=== PATIENT | female | born 1945 | race Caucasian/White ===

== ENCOUNTER 2016-07-25 06:17 | Inpatient (IN) | payer MEDICARE ==
--- NOTE | 2016-07-19 21:22 | HP ---
HISTORY AND PHYSICAL: DATE OF ADMISSION/SURGERY: 07/25/16 PROCEDURE: Right total knee arthroplasty. CHIEF COMPLAINT: Right knee pain. HISTORY OF PRESENT ILLNESS: Ms. Skinner is a 71-year-old female with complaints of right knee pain s econdary to advanced osteoarthritis. She has failed conservative management and has elected to proc eed with a right total knee arthroplasty which is scheduled for 07/25/[address] Glynn. PAST MEDICAL HISTORY: 1. Anxiety. 2. Hypertension. 3. Diabetes. 4. Hyperlipidemia. PAST SURGICAL HISTORY: 1. Left knee arthroplasty. 2. Right thumb nerve surgery. 3. Bilateral knee arthroscopies. 4. Cyst removal from her ovary. 5. . CURRENT MEDICATIONS: 1. Propranolol 20 mg once a day. 2. Trulicity 0.75 mg/0.5 mL once weekly injection. 3. Lovastatin 20 mg at night. 4. Lisinopril 20 mg every day. 5. Repaglinide 0.5 mg once a day. 6. Aspirin 81 mg once a day. 7. Vitamin D 1000 units once a day. 8. Metformin 500 mg 2 tablets twice daily. 9. Daily multivitamin. 10. Bupropion 150 mg once a day. ALLERGIES: No known drug allergies. FAMILY HISTORY: Diabetes, heart disease, lymphoma, lung cancer. SOCIAL HISTORY: She is a 71-year-old female. She lives alone. She does not smoke or use drugs. U ses occasional social alcohol. REVIEW OF SYSTEMS: A complete review of systems was reviewed with the patient. Positive for diabete s. Negative for history of DVT, PE, anesthesia problems, hepatitis C, or HIV. PHYSICAL EXAMINATION GENERAL: She is well developed, well nourished in no acute distress. VITAL SIGNS: She stands 5 feet 6 inches tall, weighs 190 pounds. Her blood pressure is 132/77. He r heart rate is 79. HEENT: Normocephalic, atraumatic. NECK: Supple. No palpable lymph nodes. Trachea is midline. PULMONARY: The lungs are clear to auscultation bilaterally. CARDIO: Regular rate and rhythm. Strong S1, S2. ABDOMEN: Soft, nontender, nondistended. NEUROLOGICAL: She is alert and oriented x3. Cranial nerves II through XII are intact. MUSCULOSKELETAL: Right lower extremity: The skin is intact. No open wounds or abrasions. She has tenderness over the medial and lateral joint line. Her lower extremity muscle group strengths are intact at 5/5. She has 2+ dorsalis pedis pulses and intact sensation. ASSESSMENT AND PLAN: Ms. Skinner is a 71-year-old female with complaints of right knee pain seconda ry to advanced osteoarthritis. She has failed conservative management and has elected to proceed wi th a right total knee arthroplasty which is scheduled for 07/25/[address] Glynn discus sed the risks and benefits of the surgery at today's visit. All of her questions were answered. Co umadin, Percocet, and Colace were sent to her pharmacy for postoperative pain control and DVT prophy laxis. She will see Dr. Glynn back 2 weeks after the surgery. BRIGITTE SALCEDO [id number]/[facility] #: [id number]
[~2016-07-25 06:17] MED LIST: Buffered Lidocaine 1% SYR 3ML* 3 ML/SYR SYRINGE INTRADERM ONE; Buffered Lidocaine 1% SYRIN* 5 ML/SYR SYRINGE ONE; Famotidine IV* 10 MG/ML 2 ML (20 mg) IV ONE; Famotidine IV* 10 MG/ML 2 ML (20 mg) ONE; ceFAZolin 2 GM PREMIX(*) 2 GM/50 ML BAG IVPB ONE
[2016-07-25] MEDS ORDERED: Midazolam* 1 MG/ML 5 ML VIAL (5 MG) ONE (07:13)
[2016-07-25] MEDS ORDERED: fentaNYL* 50 MCG/ML 2 ML VIAL (100 MCG VIAL) ONE (07:13)
[2016-07-25] MEDS ORDERED: ROPIVACAINE 5 MG/ML 30 ML BTL (0.5%) ONE (07:15)
[2016-07-25] MEDS ORDERED: Lidocaine 1% INJ* 10 MG/ML 30 ML SDV ONE (07:35)
[2016-07-25] MEDS ORDERED: Morphine PF AMP (0.5MG/ML)* 5 MG/10 ML AMP ONE (07:45)
[2016-07-25] MEDS ORDERED: KETAMINE HCL* 50 MG/ML 10 ML VIAL ONE (07:56)
[2016-07-25] MEDS ORDERED: DiMENhydriNATE IV* 50 MG/ML VIAL ONE (08:10)
[2016-07-25] MEDS ORDERED: Lidocaine 2% PF * 5 ML VIAL ONE (08:10)
[2016-07-25] MEDS ORDERED: Ondansetron INJ* 2 MG/ML VIAL ONE (08:10)
[2016-07-25] MEDS ORDERED: Ketorolac INJ* 30 MG/ML 1 ML VIAL ONE (08:10)
[2016-07-25] MEDS ORDERED: Propofol* 10 MG/ML 20 ML BTL IV PUSH ONE ×2 (08:10→09:31)
[2016-07-25] MEDS ORDERED: Dexamethasone IV* 4 MG/ML 1 ML (4 MG) ONE (08:10)
[2016-07-25] MEDS ORDERED: Ondansetron INJ* 2 MG/ML VIAL IV PRN (08:52)
[2016-07-25] MEDS ORDERED: oxyCODONE TAB* 5 MG TAB PO PRN ×2 (08:52→21:50)
[2016-07-25] MEDS ORDERED: Nalbuphine* 20 MG/ML 1 ML VIAL IV PRN (08:52)
[2016-07-25] MEDS ORDERED: Naloxone* 0.4 MG/ML 1 ML VIAL IV PRN (08:52)
[2016-07-25] MEDS ORDERED: HYDROmorphone* 1 MG/ML 1 ML SYR IV PRN (08:56)
[2016-07-25] MEDS ORDERED: DiMENhydriNATE IV* 50 MG/ML VIAL IV PUSH PRN (08:56)
[2016-07-25] MEDS ORDERED: oxyCODONE/Acetamin 5/325 MG* TAB PO PRN (08:56)
[2016-07-25] MEDS ORDERED: Polyethylene Glycol 3350* 17 GM PACKET PO PRN (10:37)
[2016-07-25] MEDS ORDERED: Bisacodyl SUPP* 10 MG SUPP PR PRN (10:37)
[2016-07-25] MEDS ORDERED: Magnesium Hydroxide LIQ* 30 ML UDC PO PRN (10:37)
[2016-07-25] MEDS ORDERED: PROPRANOLOL HCL PO PRN (10:40)
[2016-07-25] MEDS ORDERED: Dulaglutide (NF) 1.5 MG/0.5 ML SYRINGE SUBCUT SCH (11:00)
--- NOTE | 2016-07-25 11:39 | RAD ---
INDICATION: Status post total right knee replacement surgery. COMPARISON: Comparison is made with a prior study from March 13, 2016. TECHNIQUE: 2 views of the right knee were obtained. FINDINGS: The patient is status post total right knee replacement surgery. The bones and prostheses are in normal alignment. There is air within the surrounding soft tissues and a drain present anterior to the distal femur consistent with the patient's recent surgery. IMPRESSION: STATUS POST TOTAL RIGHT KNEE REPLACEMENT SURGERY.
[2016-07-25] MEDS ORDERED: Dextrose 50% Syringe 50 ML* 25 GM/50 ML SYRINGE IV PUSH PRN (12:06)
[2016-07-25] MEDS ORDERED: Propranolol TAB* 20 MG PO PRN (12:08)
[2016-07-25] MEDS: Acetaminophen TAB* 325 MG PO SCH ×3 (14:35→21:19)
[2016-07-25] MEDS: ceFAZolin 1 GM in Dextrose (*) 1 GM/50 ML BAG IVPB SCH ×2 (16:30→23:56)
[2016-07-25] MEDS ORDERED: Repaglinide TAB* 0.5 MG PO SCH (17:00)
[2016-07-25] MEDS ORDERED: Warfarin TAB(*) 6 MG PO ONE (17:00)
[2016-07-25] MEDS: Insulin LISPRO* 1 UNITS UNIT SUBCUT SCH (17:22)
[2016-07-25] MEDS ORDERED: Simvastatin TAB(NF) 20 MG TAB PO SCH (18:00)
[2016-07-25] MEDS ORDERED: metFORMIN* 500 MG TAB PO SCH (21:00)
[2016-07-25] MEDS: LOVASTATIN 10 MG PO SCH (21:19)
[2016-07-25] MEDS: Docusate CAP* 100 MG PO SCH (21:19)
--- NOTE | 2016-07-25 21:27 | CONS ---
ONSULTATION REPORT: DATE OF CONSULT: 07/25/16 AGE: 71. PRIMARY CARE PROVIDER: Dimitri Acuna MD. ATTENDING PHYSICIAN: Juan Francisco Tamez MD (dictated by Isa Ramirez NP). PHYSICIAN REQUESTING CONSULTATION: Sivan Glynn MD. REASON FOR CONSULTATION: Co-medical management in a patient with a history of hypertension, diabetes mellitus type 2, and hyperlipidemia. HISTORY OF PRESENT ILLNESS: Ms. Skinner is a 71-year-old female with past medical history significant for anxiety, hypertension, type 2 diabetes mellitus , hyperlipidemia, chronic kidney disease stage 4, obesity, anemia of chronic disease, and osteoarthritis who presented to the hospital for an elective right total knee arthroplasty with Dr. Glynn today. Postoperatively, the patient is doing well. She reports minimal nausea in the recovery room that has resolved. The patient states that leading up to surgery she has been in good state of health with the exception of right knee discomfort. She denies any recent fevers, chills, shortness of breath, chest pain, or urinary symptoms. Hospitalists were asked to assist with medical management of this patient during the postoperative period. PAST MEDICAL HISTORY: 1. Anxiety. 2. Hypertension. 3. Diabetes mellitus type 2. 4. Hyperlipidemia. 5. Chronic kidney disease stage 4. 6. Obesity. 7. Anemia of chronic disease. 8. Osteoarthritis. PAST SURGICAL HISTORY: 1. Status post left total knee arthroplasty in 2014. 2. Status post right thumb nerve surgery. 3. Status post bilateral knee arthroscopies. 4. Status post ovarian cyst resection. 5. Status post section in 1980. 6. Status post bilateral cataract extractions. HOME MEDICATIONS: Include: 1. Propranolol 20 mg oral daily as needed for anxiety. 2. Trulicity 0.75 mg/0.5 mL subcutaneous weekly on . 3. Rosuvastatin 20 mg oral daily. 4. Lisinopril 10 mg oral daily. 5. Repaglinide 0.5 mg oral daily. 6. Aspirin 81 mg oral daily. 7. Vitamin D3, 1000 units oral daily. 8. Metformin 1000 mg oral twice daily. 9. Multivitamin 1 tablet oral daily. 10. Bupropion XL 150 mg oral daily. 11. Diclofenac sodium 75 mg oral daily every morning as needed. ALLERGIES: No known drug allergies. FAMILY HISTORY: The patient's sister had a history of diabetes mellitus. The patient's father had a myocardial infarction in his 60s and her maternal grandmother had a history of heart disease. The patient's mother had a history of lymphoma. The patient's maternal aunt had a history of lung cancer and her maternal grandfather had an unknown cancer in his 90s. SOCIAL HISTORY: The patient denies tobacco or recreational drug use. She occasionally drinks alcoholic beverages. She lives alone. Her son, Jaciel Skinner, will be her surrogate decision maker in the event that she is unable to make decisions for herself. REVIEW OF SYSTEMS: I performed a 14-point review of systems. All the pertinent positives and negatives are mentioned in the history of present illness. The remaining review of systems is negative. PHYSICAL EXAMINATION: Vital Signs: Temperature 98.2, heart rate 70, respiratory rate 16, O2 saturation 99% on 2 L via nasal cannula, blood pressure 121/62. Appearance: The patient is alert, appears to be in no acute distress. HEENT: Normocephalic, atraumatic. Pupils are equal and reactive to light. Extraocular movements are intact. Cardiovascular: Regular rate and rhythm. S1 , S2 crisp. There are no murmurs, rubs, or gallops heard. Extremities: There is no lower extremity edema. DP and PT pulses are 2+ and symmetric. Respiratory: There is no accessory muscle use and the lungs are clear to auscultation bilaterally. Abdomen: Soft, nontender, nondistended. Bowel sounds present x4. Musculoskeletal: There is no clubbing or cyanosis noted. The patient exhibits good strength in all extremities. Skin: There is dressing on the right knee that is clean, dry and intact. Neurological: Cranial nerves II through XII are grossly intact. The patient moves all extremities. Psychological: The patient is calm and cooperative. DIAGNOSTIC STUDIES/LAB DATA: Preoperative labs from 06/28/16: Sodium 138, potassium 4.7, chloride 104, CO2 28, BUN 32, creatinine 1.73, glucose 111. White blood cell count 4.7, hemoglobin 11.1, hematocrit 34, platelet count 279. Urinalysis from 07/19/16 shows no growth. Chest x-ray from 07/19/16 shows no cardiopulmonary disease. Preoperative EKG shows a normal sinus rhythm with a rate of 78 and no signs of acute ischemia. IMPRESSION: Ms. Skinner is a 71-year-old female with past medical history significant for anxiety, hypertension, diabetes mellitus type 2, hyperlipidemia , chronic kidney disease stage 4, obesity, anemia of chronic disease, and osteoarthritis who presents to the hospital for an elective right total knee arthroplasty with Dr. Glynn. Hospitalists were asked to assist with the co- management of this patient during her hospitalization. ASSESSMENT/PLAN: 1. Status post right total knee arthroplasty: Postop day. Management will be per Orthopedic Surgery. The patient will be started on a pain regimen and bowel regimen. She will have physical therapy and occupational therapy. We will trend the patient's hemoglobin and hematocrit. She will be on Lovenox bridged to warfarin per Orthopedic Surgery. Her urinary catheter will be removed on postop day 1. 2. Type 2 diabetes mellitus: While the patient is in the hospital, we are going to hold her Prandin and metformin. She takes Trulicity once weekly and took that this morning prior to her surgery. We will do fingersticks a.c. and h.s. with a lispro sliding scale with meals. The patient's last hemoglobin A1c from January 2015 was 7.0. 3. Hypertension: The patient's blood pressures have been normotensive during her time in the PACU. For now, we will hold her lisinopril and resume accordingly possibly in the morning. 4. Hyperlipidemia: The patient will be continued on her home statin or the auto substitute available at the hospital. 5. Anxiety: The patient will be continued on her as needed propranolol and bupropion. 6. Chronic kidney disease stage 4: The patient's preoperative creatinine was 1.73. This appears to be slightly higher than her previous baseline, but they are from 2014, at which time she was from 1.29 to 1.54. I recommend avoiding nephrotoxic agents and will recheck her creatinine in the morning and follow this. 7. Anemia of chronic disease: The patient's preoperative hemoglobin was 11.1 and hematocrit 34, so this appears to be her baseline. We will trend her hemoglobin and hematocrit while she is here. 8. Fluids, electrolytes, and nutrition: The patient will be on a consistent carbohydrate diet. 9. DVT prophylaxis: The patient will be on Lovenox bridged to warfarin per Orthopedic Surgery. 10. Code status: Full code. 11. Disposition: Inpatient with disposition per Orthopedic Surgery. TIME SPENT: The time for this consultation was 60 minutes, and 30 minutes were spent [id number] with the patient discussing medications, past medical history , and the events leading up to her arrival today and performing a physical examination. The case has been reviewed with the attending, Dr. Tamez, who agrees with the plan of care. Reviewed by DEON DUNHAM 07/27/16 1656 CC: Dimitri Acuna MD; Dr. Glynn* [id number]/[facility] #: [id number] [facility]ENTERS[facility]
[2016-07-25] MEDS ORDERED: Oxycodone IR 10 MG(NF) TAB PO PRN (21:47)
[2016-07-25] MEDS ORDERED: Insulin LISPRO* 1 UNITS UNIT SUBCUT ONE (22:16)
[2016-07-26] MEDS ORDERED: Ondansetron TAB* 4 MG PO PRN
[2016-07-26] MEDS ORDERED: diPHENhydraMINE IV* 50 MG/ML 1 ml VIAL (BENADRYL) IV PRN
[2016-07-26] MEDS ORDERED: oxyCODONE/Acetamin 5/325 MG* TAB PO PRN
[2016-07-26] MEDS ORDERED: Acetaminophen TAB* 325 MG PO PRN
[2016-07-26] MEDS: oxyCODONE TAB* 5 MG TAB PO PRN ×3 (02:41→17:10)
[2016-07-26] MEDS: oxyCODONE/Acetamin 5/325 MG* TAB PO PRN ×4 (06:03→20:04)
--- NOTE | 2016-07-26 06:13 | OP ---
OPERATIVE REPORT: DATE OF OPERATION: 07/25/16 DATE OF : 47 SURGEON: Sivan Glynn MD CLIENT RESOURCE SPECIALIST: BRIGITTE Nj ANESTHESIOLOGIST: Dr. Vincent ANESTHESIA: Spinal with adductor nerve block. PRE-OP DIAGNOSIS: Severe endstage degenerative osteoarthritis of the right knee with valgus deformity. POST-OP DIAGNOSIS: Severe endstage degenerative osteoarthritis of the right knee with valgus deformity. OPERATIVE PROCEDURE: Right total knee arthroplasty. TOURNIQUET TIME: 61 minutes. COMPLICATIONS: None. SPECIMEN: Bone and cartilage from the right knee joint, sent to Pathology. ESTIMATED BLOOD LOSS: 200 cc. HARDWARE USED: Is [employer] cemented total knee hardware. For the femur , a size 4 right posterior stabilized femoral component. For the tibia, a size 4 tibial baseplate, right. A 35 mm 3-peg all poly patella and a 9 mm size 3-4 constrained articular insert. For the cement, 2 packages of Simplex cement. BRIEF HISTORY/INDICATIONS: Ms. Skinner is a 71-year-old female with years of increasingly severe right knee pain. Radiographs confirmed severe endstage arthritis of the right knee joint with [id number] contact in the lateral compartment and severe arthritis of the patellofemoral compartment as well as valgus deformity. The patient failed conservative treatment with antiinflammatories, pain medication, intraarticular injections, physical therapy , and use of a cane. She elected to undergo right total knee arthroplasty due to continued pain and decreased quality of life. Informed consent was obtained from the patient. She understood the risks of the procedure included, but were not limited to bleeding, infection, damage to nearby structures, continued pain, need for further surgery, intraoperative fracture, nerve palsy, hardware failure or loosening, loss of motion, stiffness , stroke, heart attack, blood clot, and . She wished to proceed. INTRAOPERATIVE FINDINGS: Intraoperatively, the patient was noted have severe endstage arthritis of the right knee joint with complete loss of cartilage in the lateral and patellofemoral compartment. 15-degree valgus deformity preoperatively was corrected to 5 degrees of anatomic valgus by the end of the case. The patient was noted to have severe knee stiffness at the beginning of the case. She had flexion contracture with limited flexion at 90 degrees to, at the end of the case, she had full extension and 125 degrees of flexion. DESCRIPTION OF PROCEDURE: Ms. Skinner was identified in the pre-anesthesia unit. Her right lower extremity was marked as the correct operative site. Informed consent was signed and placed in the chart. The patient was taken to the operating room and placed under spinal anesthesia with an adductor nerve block. A Storm catheter was placed. Tourniquet was placed on the right thigh. Right lower extremity was prepped and draped in the usual sterile fashion. Preop time-out was made to correctly identify the patient's side and site. Appropriate perioperative antibiotics were given within 1 hour of incision. Tourniquet was inflated and total tourniquet time for this procedure was 61 minutes. A 14-cm midline incision was made with a 10 blade and carried down to the extensor mechanism. A new 10 blade was used to make a standard medial parapatellar arthrotomy. The patella was subluxed laterally. Electrocautery was used to subperiosteally elevate soft tissue off the superomedial tibia to the mid sagittal plane. The knee was flexed up. The anterior horn of the lateral meniscus and ACL were sharply released. A drill was used to enter the distal femur. Intramedullary distal femoral cutting block was placed. This was a 3-degree right block. Oscillating saw was used to make the distal femoral cut. A lateral femoral condylar hypoplasia was noted and accounted for. Next, the external rotation guide was pinned on the distal femur. The distal femur was sized to a size 4. Size 4 multi-cutting jig was pinned on the distal femur. Oscillating saw was used to make the appropriate 4 chamfer cuts. Any bony fragments were carefully removed. PCL was completely released. The tibia was subluxed anteriorly and the extramedullary tibial cutting guide was placed on the proximal tibia. Oscillating saw was used to make the proximal tibial cut perpendicular to the mechanical axis of the tibia. The bone was carefully removed. The knee was brought out into full extension. There was some MCL laxity, although the MCL was intact. A 15-blade was used to perform a pie-crusting technique along the lateral ligaments. Medial and lateral ligamentous balancing were significantly improved. Flexion and extension gaps were equal. The knee was flexed up. Lamina order entry technician was placed both medially and laterally. Any remaining meniscus was carefully removed using electrocautery. Posterior osteophytes were removed using a curved osteotome and curette. Tibial tray and drop linda were placed. Once again confirmed satisfactory position of the proximal tibial cut. The cut was satisfactory. A size 4 right femoral trial was impacted onto the distal femur. The box for the posterior stabilized implant was prepared using a reamer and box cut osteotome. Size 4 tibial tray trial and 9-mm insert trial were placed and the knee was taken through a range of motion. There was 0 to 125 degrees of flexion with good patellofemoral tracking. The patella was everted and 9 mm of patellar bone and cartilage was removed with a saw. The patella was sized to a 35 and the peg holes were drilled. Trial patella showed good tracking. All trials were removed. The tibia was subluxed anteriorly and sized to a size 4. The proximal tibia was prepared with a size 4 keel punch. The bone was irrigated and dried. The final implants were cemented into place and tourniquet was turned down at 61 minutes. Once the cement was fully cured, the insert trial was removed. Any excess cement was removed. The final insert chosen was a 9 mm constrained size 3-4 poly insert. This was locked into the tibial tray and was noted to be stable. The knee was copiously irrigated. The extensor mechanism was closed using interrupted 1-0 vicryl sutures over a medium hemovac drain. The rest of the incision was closed in a layered fashion and skin was closed with nylon suture. Sterile dressings were applied. The patient was taken to pacu in stable condition. [id number]/[facility] #: [id number] EKTA
[2016-07-26 06:58] LABS: Hematocrit 24 % (35-47); Hemoglobin 7.7 g/dl (12.0-16.0)
[2016-07-26] MEDS: Morphine INJ* 2 MG/ML 1 ML SYRINGE IV PRN ×2 (07:48→10:07)
[2016-07-26] MEDS: ceFAZolin 1 GM in Dextrose (*) 1 GM/50 ML BAG IVPB SCH (07:50)
[2016-07-26] MEDS: BuPROPion XL* 150 MG TAB.XL PO SCH (07:51)
[2016-07-26] MEDS: Docusate CAP* 100 MG PO SCH ×2 (07:51→21:06)
[2016-07-26] MEDS: Cholecalciferol TAB* 1000 UNITS PO SCH (07:51)
[2016-07-26] MEDS: Enoxaparin(*) 30 MG/0.3 ML SYR SUBCUT SCH (07:52)
[2016-07-26 08:20] LABS: BUN/Creatinine Ratio 15.3 (8-20); Calcium 8.1 mg/dL (8.6-10.3); EGFR African American 38.2 (>60); EGFR Non-African American 29.7 (>60); Potassium 4.2 mmol/L (3.5-5.0)
[2016-07-26] MEDS ORDERED: Lisinopril TAB* 10 MG PO SCH (09:00)
[2016-07-26] MEDS: Insulin LISPRO* 1 UNITS UNIT SUBCUT SCH ×3 (09:02→17:12)
[2016-07-26] MEDS: oxyCODONE SR TAB(*) 10 MG TAB.SR PO SCH ×3 (09:48→21:06)
[2016-07-26] MEDS ORDERED: Scopolamine 1.5 mg* PATCH TRANSDERM SCH (11:00)
[2016-07-26] MEDS ORDERED: Scopolomine PATCH Remove* 1 NOTE MISC PATCH OFF SCH (11:00)
--- NOTE | 2016-07-26 11:04 | PN ---
Progress Note - Progress Note SOAP: Subjective: 71 y/o female s/p R TKA 07/[address] Glynn. Patient c/o increased pain overnight and nausea with vomiting x 1 this AM. was able to have dinner last night, however did vomit after breakfast. Objective: General- Well appearing, NAD, sitting in chair c/o nausea, pain MSK- Surgical dressing intact, sensation intact grossly b/l le, moderate swelling noted L LE, pt 2+ b/l, + DF/ PF b/l. Vital Signs Temp 98.7 F 07/26/16 07:46 Pulse 85 07/26/16 07:46 Resp 16 07/26/16 10:07 BP 124/58 07/26/16 07:46 Pulse Ox 97 07/26/16 07:46 Intake & Output 07/25/16 07/26/16 07/26/16 18:59 06:59 18:59 Intake Total 2210 2975 312 Output Total 75 525 200 Balance 2135 2450 112 Intake: IV Fluids 1850 1635 257 LR 1800 1635 257 NS 50ML, Cefazolin 2G 50 IVPB 100 55 ABX - CEFAZOLIN 55 LR 100 Oral 360 1240 Output: Urine 75 Storm 525 Emesis 200 Other: # Bowel Movements 0 Laboratory Results - last 24 hr 07/25/16 07/25/16 07/25/16 10:42 12:58 17:15 Hgb Hct INR (Anticoag Therapy) Sodium Potassium Chloride Carbon Dioxide Anion Gap BUN Creatinine Est GFR ( Amer) Est GFR (Non-Af Amer) BUN/Creatinine Ratio Glucose POC Glucose (mg/dL) 164 H 232 H 216 H Calcium 07/25/16 07/26/16 07/26/16 21:23 06:44 06:44 Hgb 7.7 L Hct 24 L INR (Anticoag Therapy) 1.03 Sodium Potassium Chloride Carbon Dioxide Anion Gap BUN Creatinine Est GFR ( Amer) Est GFR (Non-Af Amer) BUN/Creatinine Ratio Glucose POC Glucose (mg/dL) 241 H Calcium 07/26/16 07/26/16 06:44 07:56 Hgb Hct INR (Anticoag Therapy) Sodium 131 L Potassium 4.2 Chloride 99 L Carbon Dioxide 26 Anion Gap 6 BUN 26 H Creatinine 1.70 H Est GFR ( Amer) 38.2 Est GFR (Non-Af Amer) 29.7 BUN/Creatinine Ratio 15.3 Glucose 155 H POC Glucose (mg/dL) 163 H Calcium 8.1 L Assessment: 71 y/o female s/p R TKA 07/[address] Glynn. Plan: - Pain control- long acting medication added - N/V- Scopolamine patch added - DVT prophylaxis- INR 1.03, 6mg coumadin tonight, continue lovenox - likely DC over weekend to home - Anemia- continue to monitor, VSS currently. Active Medications Generic Name Dose Route Start Last Admin Trade Name Freq PRN Reason Stop Dose Admin Acetaminophen 650 mg 07/26/16 00:00 Tylenol Tab* PO Q4H PRN PAIN OR TEMPERATURE Bisacodyl 10 mg 07/25/16 10:37 Dulcolax Supp* [place] DAILY PRN constipation Bupropion HCl 150 mg 07/26/16 09:00 07/26/16 07:51 Wellbutrin Xl * PO 150 mg QAM MARCELLUS Administration Protocol Cholecalciferol 1,000 units 07/26/16 09:00 07/26/16 07:51 Vitamin D Tab* PO 1,000 units DAILY MARCELLUS Administration Cyclobenzaprine HCl 10 mg 07/26/16 07:47 Flexeril Tab* PO TID PRN SPASMS Dextrose 12.5 gm 07/25/16 12:06 D50w Syringe 50 Ml* IV PUSH .FOR FS < 60 - SS PRN FS < 60 Diphenhydramine HCl 12.5 mg 07/26/16 00:00 Benadryl Iv* IV Q6H PRN PRURITIS Docusate Sodium 100 mg 07/25/16 21:00 07/26/16 07:51 Colace Cap* PO 100 mg BID MARCELLUS Administration Enoxaparin Sodium 30 mg 07/26/16 08:00 07/26/16 07:52 Lovenox(*) SUBCUT 30 mg Q24H MARCELLUS Administration Lactated Ringer's 1,000 mls @ 100 mls/hr 07/25/16 11:00 07/25/16 12:47 Lactated Ringers 1000 Ml Bag* IV 100 mls/hr PER RATE MARCELLUS Administration Insulin Human Lispro 0 - 10 units 07/25/16 16:30 07/26/16 09:02 Humalog* SUBCUT 2 units AC MARCELLUS Administration Protocol Lactulose 30 ml 07/25/16 10:37 Lactulose* PO Q6H PRN constipation Lovastatin 20 mg 07/25/16 21:00 07/25/16 21:19 Mevacor (Nf) PO 20 mg BEDTIME MARCELLUS Administration Magnesium Hydroxide 30 ml 07/25/16 10:37 Milk Of Magnesia Liq* PO Q6H PRN constipation Morphine Sulfate 2 mg 07/26/16 00:00 07/26/16 10:07 Morphine Inj (Syringe)* IV 2 mg Q2H PRN Administration PAIN Ondansetron HCl 4 mg 07/26/16 00:00 07/26/16 09:01 Zofran Tab* PO 4 mg Q6H PRN Administration NAUSEA Oxycodone HCl 10 mg 07/26/16 00:00 07/26/16 02:41 Roxycodone Tab* PO 10 mg Q4H PRN Administration SEVERE PAIN Oxycodone HCl 10 mg 07/26/16 09:00 Oxycontin(*) PO BID MARCELLUS Oxycodone/Acetaminophen 1 tab 07/25/16 08:56 Percocet 5/325 Tab* PO 07/26/16 14:00 ONCE PRN PAIN - MODERATE Oxycodone/Acetaminophen 1 tab 07/26/16 00:00 Percocet 5/325 Tab* PO Q3H PRN PAIN - MODERATE Oxycodone/Acetaminophen 2 tab 07/26/16 00:00 07/26/16 06:03 Percocet 5/325 Tab* PO 2 tab Q3H PRN Administration PAIN - MODERATE Pharmacy Profile Note 0 note 07/25/16 17:00 07/25/16 18:18 Coumadin Daily Reminder* FOLLOW UP Not Given 1700 [facility] Pharmacy Profile Note 1 note 07/26/16 11:00 Scopolomine Patch Remove* PATCH OFF .AFTER 72 HOURS [facility] Polyethylene Glycol/Electrolytes 17 gm 07/25/16 10:37 Miralax* PO DAILY PRN Constipation Propranolol HCl 20 mg 07/25/16 12:08 Inderal Tab* PO DAILY PRN ANXIETY Scopolamine 1 patch 07/26/16 11:00 Transderm-Scop 1.5 Mg Patch* TRANSDERM Q72H [facility] Warfarin Sodium 6 mg 07/26/16 17:00 Coumadin Tab(*) PO 07/26/16 17:01 ONCE@1700 [facility] Protocol
--- NOTE | 2016-07-26 15:34 | PN ---
Subjective Date of Service: 07/26/16 Interval History: Ms. Skinner reports that she is continuing to have pain in her right knee but confirms that nursing is working with her to keep this under good control. She denies other complaint including chest pain, SOB, nausea, or abdominal pain. Objective Active Medications: Acetaminophen (Tylenol Tab*) 650 mg PO Q4H PRN Bisacodyl (Dulcolax Supp*) 10 mg [place] DAILY PRN Bupropion HCl (Wellbutrin Xl *) 150 mg PO QAM [facility] Cholecalciferol (Vitamin D Tab*) 1,000 units PO DAILY [facility] Cyclobenzaprine HCl (Flexeril Tab*) 10 mg PO TID PRN Dextrose (D50w Syringe 50 Ml*) 12.5 gm IV PUSH .FOR FS < 60 - SS PRN Diphenhydramine HCl (Benadryl Iv*) 12.5 mg IV Q6H PRN Docusate Sodium (Colace Cap*) 100 mg PO BID [facility] Enoxaparin Sodium (Lovenox(*)) 30 mg SUBCUT Q24H [facility] Lactated Ringer's (Lactated Ringers 1000 Ml Bag*) 1,000 mls @ 100 mls/hr IV PER RATE [facility] Insulin Human Lispro (Humalog*) 0 - 10 units SUBCUT AC [facility] Lactulose (Lactulose*) 30 ml PO Q6H PRN Lovastatin (Mevacor (Nf)) 20 mg PO BEDTIME [facility] Magnesium Hydroxide (Milk Of Magnesia Liq*) 30 ml PO Q6H PRN Morphine Sulfate (Morphine Inj (Syringe)*) 2 mg IV Q2H PRN Ondansetron HCl (Zofran Tab*) 4 mg PO Q6H PRN Oxycodone HCl (Roxycodone Tab*) 10 mg PO Q4H PRN Oxycodone HCl (Oxycontin(*)) 10 mg PO BID [facility] Oxycodone/Acetaminophen (Percocet 5/325 Tab*) 1 tab PO Q3H PRN Oxycodone/Acetaminophen (Percocet 5/325 Tab*) 2 tab PO Q3H PRN Pharmacy Profile Note (Coumadin Daily Reminder*) 0 note FOLLOW UP 1700 [facility] Pharmacy Profile Note (Scopolomine Patch Remove*) 1 note PATCH OFF .AFTER 72 HOURS [facility] Polyethylene Glycol/Electrolytes (Miralax*) 17 gm PO DAILY PRN Propranolol HCl (Inderal Tab*) 20 mg PO DAILY PRN Scopolamine (Transderm-Scop 1.5 Mg Patch*) 1 patch TRANSDERM Q72H [facility] Warfarin Sodium (Coumadin Tab(*)) 6 mg PO ONCE@1700 [facility] Vital Signs 07/25/16 07/25/16 07/25/16 16:00 16:48 16:53 Temperature Pulse Rate 57 Respiratory 16 17 Rate Blood Pressure 110/54 (mmHg) O2 Sat by Pulse 98 99 Oximetry 07/25/16 07/25/16 07/25/16 16:54 18:23 18:53 Temperature 98.0 F 98.1 F Pulse Rate 71 Respiratory 15 Rate Blood Pressure 109/52 (mmHg) O2 Sat by Pulse 96 94 Oximetry 07/25/16 07/25/16 07/25/16 21:03 23:15 23:33 Temperature 98.1 F Pulse Rate 78 Respiratory 14 16 15 Rate Blood Pressure 99/45 (mmHg) O2 Sat by Pulse 92 Oximetry 07/25/16 07/26/16 07/26/16 23:36 00:00 01:33 Temperature 98.1 F Pulse Rate 78 Respiratory 16 14 Rate Blood Pressure 99/45 (mmHg) O2 Sat by Pulse 92 92 Oximetry 07/26/16 07/26/16 07/26/16 02:41 03:15 03:29 Temperature 98.2 F 98.2 F Pulse Rate 76 76 Respiratory 14 18 18 Rate Blood Pressure 111/50 111/50 (mmHg) O2 Sat by Pulse 94 94 Oximetry 07/26/16 07/26/16 07/26/16 04:41 06:03 07:46 Temperature 98.7 F Pulse Rate 85 Respiratory 14 14 15 Rate Blood Pressure 124/58 (mmHg) O2 Sat by Pulse 97 Oximetry 07/26/16 07/26/16 07/26/16 07:48 08:00 08:48 Temperature Pulse Rate Respiratory 16 16 16 Rate Blood Pressure (mmHg) O2 Sat by Pulse Oximetry 07/26/16 07/26/16 07/26/16 10:07 11:24 11:34 Temperature 99.0 F Pulse Rate 76 Respiratory 16 14 16 Rate Blood Pressure 120/64 (mmHg) O2 Sat by Pulse 93 Oximetry 07/26/16 07/26/16 13:34 14:05 Temperature Pulse Rate 72 Respiratory 16 Rate Blood Pressure 134/60 (mmHg) O2 Sat by Pulse 93 Oximetry Oxygen Devices in Use Now: None Appearance: Female lying in bed in NAD Eyes: No Scleral Icterus Ears/Nose/Mouth/Throat: Mucous Membranes Moist Neck: Trachea Midline Respiratory: Symmetrical Chest Expansion and Respiratory Effort, Clear to Auscultation Cardiovascular: NL Sounds; No Murmurs; No JVD, No Edema Abdominal: NL Sounds; No Tenderness; No Distention Extremities: No Edema Skin: No Rash or Ulcers Neurological: Alert and Oriented x 3, NL Muscle Strength and Tone Nutrition: Taking PO's Result Diagrams: 07/26/16 06:44 07/26/16 06:44 Assess/Plan/Problems-Billing Assessment: Ms. Skinner is a 71 yo female with a PMH of DM, anxiety, who was admitted on 07/25 with right total knee arthroplasty. - Patient Problems (1) Status post total right knee replacement Comment: Management per ortho. Pain meds prn with bowel regimen. PT/OT. Monitor H/H. (2) Diabetes Comment: Bgs 220s. Hold trulicity, prandin, and metformin. Increase to high dose lispro SSI insulin. (3) Anxiety Comment: Hx of anxiety and depression. Continue wellbutrin. (4) Hyperlipidemia Comment: Continue statin (5) Hypertension Comment: BP well controlled, creatinine stable. Resume lisinopril. (6) DVT prophylaxis Comment: Lovenox bridge to coumadin Status and Disposition: Disposition per ortho.
[2016-07-26] MEDS ORDERED: Warfarin TAB(*) 6 MG PO ONE (17:00)
[2016-07-26] MEDS: ALPRAZolam TAB* 0.5 MG PO PRN (21:06)
[2016-07-26] MEDS: LOVASTATIN 10 MG PO SCH (21:06)
[2016-07-27] MEDS: oxyCODONE TAB* 5 MG TAB PO PRN ×3 (01:09→11:51)
[2016-07-27 06:14] LABS: Hematocrit 23 % (35-47); Hemoglobin 7.5 g/dl (12.0-16.0)
[2016-07-27] MEDS: Cholecalciferol TAB* 1000 UNITS PO SCH (07:56)
[2016-07-27] MEDS: Lisinopril TAB* 10 MG PO SCH (07:56)
[2016-07-27] MEDS: Docusate CAP* 100 MG PO SCH ×2 (07:56→20:19)
[2016-07-27] MEDS: Cyclobenzaprine TAB* 10 MG PO PRN ×2 (07:56→20:19)
[2016-07-27] MEDS: BuPROPion XL* 150 MG TAB.XL PO SCH (07:57)
[2016-07-27] MEDS: Enoxaparin(*) 30 MG/0.3 ML SYR SUBCUT SCH (07:59)
[2016-07-27] MEDS: Insulin LISPRO* 1 UNITS UNIT SUBCUT SCH ×3 (07:59→19:17)
[2016-07-27] MEDS: oxyCODONE SR TAB(*) 10 MG TAB.SR PO SCH ×2 (08:55→22:35)
[2016-07-27] MEDS: oxyCODONE/Acetamin 5/325 MG* TAB PO PRN ×3 (10:03→20:20)
--- NOTE | 2016-07-27 10:32 | PN ---
Subjective Date of Service: 07/27/16 Interval History: Ms. Skinner reports some right knee pain but denies other complaint today. She specifically denies chest pain, SOB, nausea, or abdominal pain. Family History: Unchanged from Admission Social History: Unchanged from Admission Past Medical History: Unchanged from Admission Objective Active Medications: Acetaminophen (Tylenol Tab*) 650 mg PO Q4H PRN Alprazolam (Xanax Tab*) 0.5 mg PO BID PRN Bisacodyl (Dulcolax Supp*) 10 mg [place] DAILY PRN Bupropion HCl (Wellbutrin Xl *) 150 mg PO QAM [facility] Cholecalciferol (Vitamin D Tab*) 1,000 units PO DAILY [facility] Cyclobenzaprine HCl (Flexeril Tab*) 10 mg PO TID PRN Dextrose (D50w Syringe 50 Ml*) 12.5 gm IV PUSH .FOR FS < 60 - SS PRN Diphenhydramine HCl (Benadryl Iv*) 12.5 mg IV Q6H PRN Docusate Sodium (Colace Cap*) 100 mg PO BID [facility] Enoxaparin Sodium (Lovenox(*)) 30 mg SUBCUT Q24H [facility] Lactated Ringer's (Lactated Ringers 1000 Ml Bag*) 1,000 mls @ 100 mls/hr IV PER RATE [facility] Insulin Human Lispro (Humalog*) 0 units SUBCUT AC [facility] Lactulose (Lactulose*) 30 ml PO Q6H PRN Lisinopril (Prinivil Tab*) 10 mg PO DAILY [facility] Lovastatin (Mevacor (Nf)) 20 mg PO BEDTIME [facility] Magnesium Hydroxide (Milk Of Magnesia Liq*) 30 ml PO Q6H PRN Morphine Sulfate (Morphine Inj (Syringe)*) 2 mg IV Q2H PRN Ondansetron HCl (Zofran Tab*) 4 mg PO Q6H PRN Oxycodone HCl (Roxycodone Tab*) 10 mg PO Q4H PRN Oxycodone HCl (Oxycontin(*)) 10 mg PO BID [facility] Oxycodone/Acetaminophen (Percocet 5/325 Tab*) 1 tab PO Q3H PRN Oxycodone/Acetaminophen (Percocet 5/325 Tab*) 2 tab PO Q3H PRN Pharmacy Profile Note (Coumadin Daily Reminder*) 0 note FOLLOW UP 1700 [facility] Pharmacy Profile Note (Scopolomine Patch Remove*) 1 note PATCH OFF .AFTER 72 HOURS [facility] Polyethylene Glycol/Electrolytes (Miralax*) 17 gm PO DAILY PRN Propranolol HCl (Inderal Tab*) 20 mg PO DAILY PRN Scopolamine (Transderm-Scop 1.5 Mg Patch*) 1 patch TRANSDERM Q72H [facility] Vital Signs 07/26/16 07/26/16 07/26/16 11:24 11:34 13:34 Temperature 99.0 F Pulse Rate 76 Respiratory 14 16 16 Rate Blood Pressure 120/64 (mmHg) O2 Sat by Pulse 93 Oximetry 07/26/16 07/26/16 07/26/16 14:05 15:30 15:39 Temperature 97.7 F Pulse Rate 72 78 Respiratory 16 16 Rate Blood Pressure 134/60 126/54 (mmHg) O2 Sat by Pulse 93 96 Oximetry 07/26/16 07/26/16 07/26/16 16:30 17:10 17:30 Temperature Pulse Rate Respiratory 16 16 Rate Blood Pressure (mmHg) O2 Sat by Pulse 96 Oximetry 07/26/16 07/26/16 07/26/16 19:10 19:37 20:04 Temperature 98.8 F Pulse Rate 82 Respiratory 16 16 16 Rate Blood Pressure 136/61 (mmHg) O2 Sat by Pulse 99 Oximetry 07/26/16 07/26/16 07/26/16 20:12 20:15 21:06 Temperature Pulse Rate Respiratory 16 16 16 Rate Blood Pressure (mmHg) O2 Sat by Pulse Oximetry 07/26/16 07/26/16 07/27/16 22:04 23:06 00:02 Temperature 98.5 F Pulse Rate 97 Respiratory 16 16 16 Rate Blood Pressure 133/54 (mmHg) O2 Sat by Pulse 90 Oximetry 07/27/16 07/27/16 07/27/16 01:09 03:09 03:34 Temperature 99.4 F Pulse Rate 92 Respiratory 16 16 16 Rate Blood Pressure 125/59 (mmHg) O2 Sat by Pulse 92 Oximetry 07/27/16 07/27/16 07/27/16 05:07 07:07 07:36 Temperature 99.1 F Pulse Rate 86 Respiratory 16 16 16 Rate Blood Pressure 135/62 (mmHg) O2 Sat by Pulse 93 Oximetry 07/27/16 07/27/16 07/27/16 07:56 08:55 09:56 Temperature Pulse Rate Respiratory 18 18 16 Rate Blood Pressure (mmHg) O2 Sat by Pulse Oximetry 07/27/16 10:03 Temperature Pulse Rate Respiratory 18 Rate Blood Pressure (mmHg) O2 Sat by Pulse Oximetry Oxygen Devices in Use Now: None Appearance: Female sitting up in bed in NAD Eyes: No Scleral Icterus Ears/Nose/Mouth/Throat: Mucous Membranes Moist Neck: Trachea Midline Respiratory: Symmetrical Chest Expansion and Respiratory Effort, Clear to Auscultation Cardiovascular: NL Sounds; No Murmurs; No JVD, No Edema Abdominal: NL Sounds; No Tenderness; No Distention Lymphatic: No Cervical Adenopathy Extremities: No Edema Skin: No Rash or Ulcers Neurological: Alert and Oriented x 3, NL Muscle Strength and Tone Nutrition: Taking PO's Result Diagrams: 07/27/16 05:34 07/26/16 06:44 Assess/Plan/Problems-Billing Assessment: Ms. Skinner is a 71 yo female with a PMH of DM, anxiety, who was admitted on 07/25 with right total knee arthroplasty. - Patient Problems (1) Status post total right knee replacement Comment: Management per ortho. Pain meds prn with bowel regimen. PT/OT. Hgb stable at 7.5. BP and HR stable. (2) Diabetes Comment: Bgs 220s. Hold trulicity, prandin, and metformin. Continue high dose lispro SSI insulin and add lantus. (3) Anxiety Comment: Hx of anxiety and depression. Continue wellbutrin. (4) Hyperlipidemia Comment: Continue statin (5) Hypertension Comment: BP well controlled, creatinine stable. Continue lisinopril. (6) DVT prophylaxis Comment: Lovenox bridge to coumadin Status and Disposition: Disposition per ortho. Anticipate discharge to home in AM.
--- NOTE | 2016-07-27 11:09 | PN ---
Progress Note - Progress Note SOAP: Subjective: 71 y/o female s/p R TKA 07/[address] Glynn. Patient c/o that she is still having pain. She states that it is improving a little. She states that she is still using the narcotics to help with the pain. States she was able to sleep through the night. Objective: General- Well appearing, NAD, sitting in bed MSK RLE- Surgical dressing changed today, incision is well approximated with no drainage, erythema or warmth. sensation intact grossly. PT and DP 2+ , + DF / PF b/l. Vital Signs Temp 99.1 F 07/27/16 07:36 Pulse 86 07/27/16 07:36 Resp 18 07/27/16 10:03 BP 135/62 07/27/16 07:36 Pulse Ox 93 07/27/16 07:45 Intake & Output 07/26/16 07/27/16 07/27/16 18:59 06:59 18:59 Intake Total 312 1575 Output Total 950 750 375 Balance -638 825 -375 Intake: IV Fluids 257 975 LR 257 975 IVPB 55 ABX - CEFAZOLIN 55 Oral 600 Output: Urine 750 375 Storm 550 Emesis 400 Assessment: 71 y/o female s/p R TKA 07/[address] Glynn. Plan: - Continue current pain medication - DVT prophylaxis- INR 1.68, 4mg coumadin tonight, continue lovenox - likely DC tomorrow home - Anemia- continue to monitor, VSS currently.
[2016-07-27] MEDS: Insulin GLARGINE(*) 1 UNITS UNIT SUBCUT SCH (11:54)
[2016-07-27] MEDS ORDERED: Warfarin TAB(*) 4 MG PO ONE (17:00)
[2016-07-27] MEDS: LOVASTATIN 10 MG PO SCH (20:23)
[2016-07-27] MEDS: ALPRAZolam TAB* 0.5 MG PO PRN (22:35)
[2016-07-28] MEDS: oxyCODONE/Acetamin 5/325 MG* TAB PO PRN ×3 (03:56→14:13)
[2016-07-28 05:49] LABS: Hematocrit 22 % (35-47); Hemoglobin 7.1 g/dl (12.0-16.0)
[2016-07-28 07:57] VITALS: BP 101/60
[2016-07-28] MEDS: Enoxaparin(*) 30 MG/0.3 ML SYR SUBCUT SCH (08:09)
[2016-07-28] MEDS: Insulin LISPRO* 1 UNITS UNIT SUBCUT SCH ×2 (08:10→12:32)
[2016-07-28] MEDS: BuPROPion XL* 150 MG TAB.XL PO SCH (08:10)
[2016-07-28] MEDS: Docusate CAP* 100 MG PO SCH (08:10)
[2016-07-28] MEDS: Lisinopril TAB* 10 MG PO SCH (08:10)
[2016-07-28] MEDS: Cholecalciferol TAB* 1000 UNITS PO SCH (08:10)
[2016-07-28] MEDS: oxyCODONE SR TAB(*) 10 MG TAB.SR PO SCH (08:11)
--- NOTE | 2016-07-28 08:58 | PN ---
Progress Note - Progress Note SOAP: Subjective: 71 y/o female s/p R TKA 07/[address] Glynn. Patient c/o that she is still having pain. She states that it is improving a little. She states that she is still using the narcotics to help with the pain, but she feels she is improving. States she was able to sleep through the night. Objective: General- Well appearing, NAD, sitting in bed MSK RLE- Surgical dressing changed today, incision is well approximated with no drainage, erythema or warmth. sensation intact grossly. PT and DP 2+ , + DF / PF b/l. Vital Signs Temp 98.1 F 07/28/16 07:28 Pulse 84 07/28/16 07:28 Resp 18 07/28/16 08:11 BP 101/60 07/28/16 07:28 Pulse Ox 93 07/28/16 08:00 Intake & Output 07/27/16 07/28/16 07/28/16 18:59 06:59 18:59 Intake Total 320 680 Output Total 1175 1050 0 Balance -855 -370 0 Intake: Oral 320 680 Output: Urine 1175 1050 0 Laboratory Results - last 24 hr 07/27/16 07/27/16 07/27/16 12:51 17:24 21:21 Hgb Hct INR (Anticoag Therapy) POC Glucose (mg/dL) 239 H 179 H 192 H 07/28/16 07/28/16 07/28/16 05:26 05:27 07:52 Hgb 7.1 L Hct 22 L INR (Anticoag Therapy) 2.37 H POC Glucose (mg/dL) 144 H Assessment: 71 y/o female s/p R TKA 07/[address] Glynn. Plan: - Pt will be discharged home today. Due to low Hgb and Hct we will transfuse her with packed red blood cells and then draw a hct on her in one weeks time. current VSS. - Continue current pain medication -DVT prophylaxis- INR 2.37, hold coumadin tonight
[2016-07-28] MEDS: Insulin GLARGINE(*) 1 UNITS UNIT SUBCUT SCH (12:32)
== END 2016-07-28 15:00 | disposition home health service (06) | DRG 470 ==
LOC: AA 06:17 → SSU 11:49
PROVIDERS: ADMIT Orthopaedic Surgery Adult Reconstructive Orthopaedic Surgery; ATTEND Orthopaedic Surgery Adult Reconstructive Orthopaedic Surgery
PROC: 0SRC0J9 Replacement of Right Knee Joint with Synthetic Substitute, Cemented, Open Approach (ICD-10-PCS; 2016-07-25)
PROC: 30233N1 Transfusion of Nonautologous Red Blood Cells into Peripheral Vein, Percutaneous Approach (ICD-10-PCS; principal; 2016-07-28)
DX: M17.11 Unilateral primary osteoarthritis, right knee (principal); N18.4 Chronic kidney disease, stage 4 (severe); E11.22 Type 2 diabetes mellitus with diabetic chronic kidney disease; D63.8 Anemia in other chronic diseases classified elsewhere; F41.9 Anxiety disorder, unspecified; E78.5 Hyperlipidemia, unspecified; Z96.652 Presence of left artificial knee joint; I12.9 Hypertensive chronic kidney disease with stage 1 through stage 4 chronic kidney disease, or unspecified chronic kidney disease; R11.2 Nausea with vomiting, unspecified; K58.9 Irritable bowel syndrome, unspecified; M21.061 Valgus deformity, not elsewhere classified, right knee; M25.761 Osteophyte, right knee; F32.9 Major depressive disorder, single episode, unspecified; D64.9 Anemia, unspecified; E66.9 Obesity, unspecified; Z98.42 Cataract extraction status, left eye; Z82.49 Family history of ischemic heart disease and other diseases of the circulatory system; Z83.3 Family history of diabetes mellitus; Z80.7 Family history of other malignant neoplasms of lymphoid, hematopoietic and related tissues; Z80.1 Family history of malignant neoplasm of trachea, bronchus and lung; Z72.89 Other problems related to lifestyle; Z98.41 Cataract extraction status, right eye; Z68.32 Body mass index [BMI] 32.0-32.9, adult
CPT/HCPCS: 36415; 62323; 80048; 85014; 85018; 85610; 86850; 86900; 86901; 86922; 88305; 88311; A9270-GY; C1776; J0690; J1100; J1240; J1650; J1885; J2001; J2250; J2270; J2300; J2405; J2704; J2795; J3010; P9016